=== PATIENT | female | born 1985 | race Caucasian/White ===

== ENCOUNTER → 2022-01-24 | Outpatient (CLI) | payer OTHER ==
--- NOTE | 2022-01-24 14:27 | CT ---
EXAMINATION TYPE: CT angio chest DATE OF EXAM: 01/24/2022 COMPARISON: NONE HISTORY: Chest pain and palpitations. CT DLP: 624 mGycm. Automated Exposure Control for Dose Reduction was Utilized. CONTRAST: CTA scan of the thorax is performed with IV Contrast, patient injected with 49ml mL of Isovue 370, pu lmonary embolism protocol. MIP Images are created on CT scanner and reviewed. FINDINGS: LUNGS: The lungs are grossly clear, there is no concerning greater than 5 mm parenchymal mass or nodu le identified. There is no pleural effusion or pneumothorax seen. The tracheobronchial tree is paten t. MEDIASTINUM: There is a suboptimal study with most dense contrast in the SVC. There is near equal co ntrast in the aorta without aortic aneurysm or dissection. Less than ideal opacification of the pulmo nary arteries without central pulmonary embolism. Could not entirely exclude peripheral segmental an d subsegmental emboli. There are no greater than 1 cm hilar or mediastinal lymph nodes. No cardiome donn or pericardial effusion is seen. OTHER: No additional significant abnormality is seen. IMPRESSION: Suboptimal study without central pulmonary embolism. No suspicious acute pulmonary parenc hymal process.
== END | disposition home or self-care (01) ==
LOC: RADCTMAIN 13:08
PROVIDERS: ATTEND Family Medicine
DX: R00.2 Palpitations (principal); R07.9 Chest pain, unspecified
CPT/HCPCS: 71275; Q9967

== ENCOUNTER → 2022-09-07 | Outpatient (CLI) | payer OTHER ==
[2022-09-07 23:38] LABS: C Reactive Protein 0.7 mg/dL (0.00-0.80)
== END | disposition home or self-care (01) ==
LOC: LABWHC1 15:17
PROVIDERS: ATTEND Nurse Practitioner Family
DX: R79.89 Other specified abnormal findings of blood chemistry (principal); R06.02 Shortness of breath
CPT/HCPCS: 36415; 86038; 86140; 86431

== ENCOUNTER 2022-11-02 19:54 | Emergency (ER) | payer OTHER ==
[2022-11-02 20:19] VITALS: BP 126/79; PULSE 73; RESP 16; TEMP 97.9
--- NOTE | 2022-11-02 21:00 | CT ---
EXAMINATION TYPE: CT cervical spine wo con CT DLP: 608.2 mGycm, Automated exposure control for dose reduction was used. DATE OF EXAM: 11/02/2022 8:45 PM COMPARISON: None. CLINICAL INDICATION:Female, 36 years old with history of pain, trauma, pain. TECHNIQUE: Axial CT images from the skull base to the inferior aspect of T2 we obtained without intra venous contrast. Coronal and sagittal reformatted images were also reviewed. FINDINGS: Fracture: None. Osseous structures: Multilevel degenerative disc disease changes with endplate spurring and disc oste ophyte complex's. Vertebral alignment: Alignment within normal limits. Spinal canal/Neural Foramina: Disc osteophyte complexes at C5-C6 with at least mild spinal canal sten osis. Facet joint uncovertebral joint arthropathy scattered throughout the cervical spine with varyin g degrees of neural foraminal stenosis. Neck soft tissues: Prevertebral soft tissues are within normal limits. Other: The airway is patent. The lung apices are clear. IMPRESSION: 1. No evidence of cervical spine fracture. 2. Mild multilevel disc degeneration changes.
[2022-11-02] MEDS ORDERED: KETOROLAC 15 MG/ML 1 ML VIAL IM STA (21:58)
[2022-11-02] MEDS ORDERED: ORPHENADRINE 30 MG/ML 2 ML VIAL IM STA (21:58)
[2022-11-02] MEDS ORDERED: DEXAMETHASONE SOD PHOSPHATE 10 MG/ML 1 ML VIAL IM STA (21:58)
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
== END 2022-11-02 23:01 | disposition home or self-care (01) ==
LOC: EC 19:54
DX: S16.1XXA Strain of muscle, fascia and tendon at neck level, initial encounter (principal); M54.12 Radiculopathy, cervical region; F41.9 Anxiety disorder, unspecified; Z88.2 Allergy status to sulfonamides; Z88.8 Allergy status to other drugs, medicaments and biological substances; X50.9XXA Other and unspecified overexertion or strenuous movements or postures, initial encounter
CPT/HCPCS: 72125; 99284; 96372 ×3; J1100; J2360; J1885

== ENCOUNTER → 2023-04-17 | Outpatient (CLI) | payer OTHER ==
--- NOTE | 2023-04-17 08:11 | US ---
EXAMINATION TYPE: US gallbladder DATE OF EXAM: 04/17/2023 COMPARISON: Renal ultrasound 09/29/2016 CLINICAL INDICATION: Female, 37 years old with history of R10.11 RUQ PAIN; Pain TECHNIQUE: Multiple sonographic images of the right upper quadrant are obtained. FINDINGS: EXAM MEASUREMENTS: Liver Length: 23.3 cm Gallbladder Wall: 0.2 cm CBD: 0.4 cm Right Kidney: 12.6 x 4.6 x 5.1 cm TYPESETTER PERFORATOR OPERATOR NOTES: Pancreas: wnl Liver: Enlarged, hyperechoic lesion right lobe= 1.2 x 0.7 x 0.7 cm Gallbladder: wnl Evidence for sonographic Gross's sign: No CBD: wnl Right Kidney: wnl Pancreas is within normal limits. Gallbladder is within normal limits without evidence of wall thicke gris, pericholecystic fluid, or cholelithiasis. Per appraiser timber, negative sonographic Gross sign. Co mmon bile duct is within normal limits. Right kidney is unremarkable without evidence of solid mass, hydronephrosis, or nephrolithiasis. There is a homogeneous small hyperechoic lesion within the right hepatic lobe measuring up to 1.2 cm. IMPRESSION: 1. No acute process. 2. Small hyperechoic right hepatic lobe 1.2 cm lesion. This likely represents a benign hemangioma. Th is can be further evaluated with MR abdomen (liver mass protocol) as clinically indicated.
== END | disposition home or self-care (01) ==
LOC: RADUSWWP 07:45
PROVIDERS: ATTEND Surgery Plastic and Reconstructive Surgery
DX: K76.89 Other specified diseases of liver (principal); R10.11 Right upper quadrant pain
CPT/HCPCS: 76705

== ENCOUNTER → 2023-04-17 | Outpatient (CLI) | payer OTHER | END | disposition home or self-care (01) | LOC: LABWHC1 07:48 | PROVIDERS: ATTEND Family Medicine | DX: Z01.818 Encounter for other preprocedural examination (principal); G93.2 Benign intracranial hypertension | CPT/HCPCS: 36415; 93005 ==

== ENCOUNTER → 2023-05-18 | Outpatient (CLI) | payer OTHER ==
--- NOTE | 2023-05-18 16:18 | CT ---
EXAMINATION TYPE: CT abdomen pelvis wo con CT DLP: 1741.5 mGycm, Automated exposure control for dose reduction was used. DATE OF EXAM: 05/18/2023 12:33 PM COMPARISON: None. CLINICAL INDICATION:Female, 37 years old with history of G93.2 BENIGN INTRACRANIAL HYPERTENSION; Lex gn, intracranial hypertension, abdominal pain-shunt drain right side abd TECHNIQUE: Axial CT of the abdomen and pelvis. Sagittal and coronal reformats were created on a [employer] workstation. Contrast used: mL of , (none if empty) Oral contrast used: without Oral Contrast (none if empty) FINDINGS: LOWER CHEST: Unremarkable ABDOMEN LIVER: Unremarkable GALLBLADDER AND BILE DUCTS: Unremarkable. PANCREAS: Unremarkable. SPLEEN: Unremarkable. ADRENAL GLANDS: Unremarkable. KIDNEYS AND URETERS: No evidence of hydronephrosis or renal calculus. The ureters are unremarkable. PELVIS BLADDER: Unremarkable REPRODUCTIVE: Unremarkable. ABDOMEN & PELVIS STOMACH AND BOWEL: No evidence of bowel obstruction. The appendix is normal. PERITONEUM/RETROPERITONEUM: No evidence of pneumoperitoneum or free fluid. Ventriculoperitoneal shunt tubing terminates in the upper abdomen and courses along the right anterior abdominal wall VASCULATURE: No evidence of aortic aneurysm. MUSCULOSKELETAL: No acute osseous abnormalities LYMPH NODES: No gross evidence for lymphadenopathy. SOFT TISSUE/ABDOMINAL WALL: Unremarkable IMPRESSION: Ventriculoperitoneal shunt tubing without evidence for organizing fluid collection near its tip. No e vidence for acute abdominal process.
== END | disposition home or self-care (01) ==
LOC: RADCTMAIN 12:04
PROVIDERS: ATTEND Neurological Surgery
DX: G93.2 Benign intracranial hypertension (principal); Z98.2 Presence of cerebrospinal fluid drainage device
CPT/HCPCS: 74176

== ENCOUNTER → 2023-05-18 | Outpatient (CLI) | payer OTHER ==
--- NOTE | 2023-05-18 19:42 | NM ---
EXAMINATION TYPE: NM hepatobiliary w EF DATE OF EXAM: 05/18/2023 COMPARISON: NONE CLINICAL INDICATION: Female, 37 years old with history of R10.11; TECHNIQUE: After the intravenous administration of 4.3 mCi Tc 99m Mebrofenin hepatobiliary scintigrap hy is performed. Immediate images post injection. FINDINGS: There is satisfactory initial accumulation of tracer by the liver. The gallbladder is visualized imm ediately before 1 minute. The small bowel activity is noted after prompting gallbladder contraction a t 60 minutes. At one hour 8 ounces of oral ensure plus is given to mimic CCK and gallbladder ejection fraction is calculated at 81 %, slightly elevated above the expected range (35-80%). IMPRESSION: No scintigraphic evidence for acute/chronic cholecystitis or biliary dyskinesia. Increase d gallbladder ejection fraction may be seen in the setting of gallbladder hyperkinesis.
== END | disposition home or self-care (01) ==
LOC: RADNMMAIN 12:08
PROVIDERS: ATTEND Surgery Plastic and Reconstructive Surgery
DX: R10.11 Right upper quadrant pain (principal)
CPT/HCPCS: 78226; A9537

== ENCOUNTER → 2023-08-16 | Outpatient (CLI) | payer OTHER ==
[2023-08-16 16:13] VITALS: BP 138/85; PULSE 85; TEMP 98.5; BMI 43.5
--- NOTE | 2023-08-16 16:46 | P.HPBAR ---
Bariatric H&P - History & Physicial H&P Date: 08/16/23 History & Physicial: Visit/CC: new patient Patient initial contact: Initial weight: Initial weight in pounds: Height: 5 ft 2.5 in Initial BMI: Last weight: Current weight: 109.769 kg Current weight in pounds: 242.00 Current BMI: 43.5 [place] body weight (based on NIH guidelines): 51.029 kg Excess body weight loss: The patient is a 37 year-old F who presents for Bariatric Assessment. She drink 120 oz daily. She has challenge with bowel. Need food allergy testing. CT reviewed. with fatty liver for pseudotumor cerebri. Has BMI over 40 with co- morbidities. Past Medical History Past Medical History: Asthma, Hyperlipidemia, Osteoarthritis (OA) Additional Past Medical History / Comment(s): small umbillical Hernia. Pseudotumor cerebri/increased intracranial pressure since meningitis in 2014. History of Any Multi-Drug Resistant Organisms: None Reported Past Surgical History: Section, Orthopedic Surgery Additional Past Surgical History / Comment(s): R foot bunionectomy. DOCK HAND shunt April 2023. 2 d & c Past Anesthesia/Blood Transfusion Reactions: No Reported Reaction, Motion Sickness Additional Past Anesthesia/Blood Transfusion Reaction / Comm: Pt has never received blood. Past Psychological History: Anxiety, Depression Additional Psychological History / Comment(s): Pt resides with her son. Smoking Status: Former smoker Past Alcohol Use History: Rare Additional Past Alcohol Use History / Comment(s): Pt started smoking in 2000 and quit in 2018 Past Drug Use History: Marijuana - Past Family History Mother Family Medical History: COPD, Thyroid Disorder Additional Family Medical History / Comment(s): Diverticulitis, smoker, enlarged heart ventrical Father History Unknown: Yes Surgical - Exam Vital Signs Temp Pulse BP 98.5 F 85 138/85 08/16/23 15:51 08/16/23 15:51 08/16/23 15:51 Bariatric Checklist Checklist: Plan: Checklist: EGD: 1. Hiatal hernia: 2. H. Pylori: HgbA1c: Vitamin D: Smoking: Primary care physician referral: Nicole Lopez NP Psychiatry clearance: Cardiology clearance: Sleep study: Diet journal: VTE risk score: VTE risk level: Rehab needs at discharge:
== END ==
LOC: BARWHC3 15:03
PROVIDERS: ATTEND Surgery Plastic and Reconstructive Surgery
DX: Z53.9 Procedure and treatment not carried out, unspecified reason (principal)
CPT/HCPCS: 99212

== ENCOUNTER 2023-10-09 07:39 | Day surgery (SDC) | payer OTHER ==
[2023-10-04 15:27] VITALS: BMI 43.9
[~2023-10-09 07:39] MED LIST: LACTATED RINGERS 1,000 ML IV SCH; LIDOCAINE 1% (10MG/ML) FOR IV START INTRADERMA PRN
[2023-10-09] MEDS ORDERED: MIDAZOLAM 2 MG/2 ML VIAL ONE (08:19)
[2023-10-09] MEDS ORDERED: PROPOFOL 10 MG/ML 20 ML VIAL IV ONE (08:19)
[2023-10-09] MEDS ORDERED: LIDOCAINE 1% INJ 10MG/ML (20 ML MDV) ONE (08:19)
--- NOTE | 2023-10-09 08:27 | P.GSHP ---
History of Present Illness H&P Date: 10/09/23 CHIEF COMPLAINT: GERD and change in bowel habits HISTORY OF PRESENT ILLNESS: The patient is a 37-year-old female who presents with gastroesophageal reflux disease and change in bowel habits over 6 months. Upper and lower endoscopy were offered for further evaluation and management. PAST MEDICAL HISTORY: Please see list. PAST SURGICAL HISTORY: Please see list. MEDICATIONS: Please see list. ALLERGIES: Please see list. SOCIAL HISTORY: No illicit drug use FAMILY HISTORY: No reports of Crohn disease or ulcerative colitis. REVIEW OF ORGAN SYSTEMS: CONSTITUTIONAL: No reports of fevers or chills. GI: Change in bowel habits over 6 months. PHYSICAL EXAM: VITAL SIGNS: Stable GENERAL: Well-developed pleasant in no acute distress. HEENT: No scleral icterus. Extraocular movements grossly intact. Moist buccal mucosa. NECK: Supple without lymphadenopathy. CHEST: Unlabored respirations. Equal bilateral excursions. CARDIOVASCULAR: Regular rate and rhythm. Distal 2+ pulses. ABDOMEN: Soft, nondistended. MUSCULOSKELETAL: No clubbing, cyanosis, or edema. ASSESSMENT: 1. Gastroesophageal reflux disease 2. Change in bowel habits over 6 months PLAN: 1. Recommend proceeding with an upper and lower endoscopy Past Medical History Past Medical History: Asthma, Hyperlipidemia, Osteoarthritis (OA) Additional Past Medical History / Comment(s): small umbillical Hernia. Pseudotumor cerebri/increased intracranial pressure since meningitis in 2014. History of Any Multi-Drug Resistant Organisms: None Reported Past Surgical History: Section, Orthopedic Surgery Additional Past Surgical History / Comment(s): R foot bunionectomy. 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 2 d & c, COLONOSCOPY Past Anesthesia/Blood Transfusion Reactions: No Reported Reaction, Motion Sickness Additional Past Anesthesia/Blood Transfusion Reaction / Comment(s): Pt has never received blood. Smoking Status: Former smoker - Past Family History Mother Family Medical History: COPD, Thyroid Disorder Additional Family Medical History / Comment(s): Diverticulitis, smoker, enlarged heart ventrical Father History Unknown: Yes Medications and Allergies Home Medications Medication Instructions Recorded Confirmed Type acetaZOLAMIDE [Diamox Sequels] 500 mg PO BID 04/05/23 10/04/23 History Loratadine [Claritin] 10 mg PO DAILY 08/16/23 10/04/23 History lamoTRIgine [LaMICtal] 20 mg PO DAILY 08/16/23 10/04/23 History Sertraline [Zoloft] 50 mg PO DAILY 10/04/23 10/04/23 History Allergies Allergy/AdvReac Type Severity Reaction Status Date / Time sulfamethoxazole Allergy fever, Verified 10/09/23 08:08 [From Bactrim] chills, body aches trimethoprim [From Bactrim] Allergy fever, Verified 10/09/23 08:08 chills, body aches prednisone AdvReac Rash/Hives Verified 10/09/23 08:08 Surgical - Exam Vital Signs Temp Pulse Resp BP Pulse Ox 97.6 F 83 16 140/80 99 10/09/23 08:18 10/09/23 08:18 10/09/23 08:18 10/09/23 08:18 10/09/23 08:18
[2023-10-09 08:28] VITALS: TEMP 97.6
--- NOTE | 2023-10-09 08:32 | P.PCN ---
Date of Procedure: 10/09/23 Description of Procedure: PREOPERATIVE DIAGNOSIS: Gastroesophageal reflux disease. Morbid obesity. POSTOPERATIVE DIAGNOSIS: Gastroesophageal reflux disease. Morbid obesity. Gastritis. OPERATION: Esophagogastroduodenoscopy with biopsies along the esophagus, antrum and duodenum SURGEON: Shayy Sandoval MD ANESTHESIA: MAC. INDICATIONS: The patient is a 37-year-old female who presents with reflux disease. Benefits and risks of the procedure were described. Informed consent was obtained. DESCRIPTION: The patient was brought into the endoscopy suite and laid in the left lateral decubitus position. An Olympus gastroscope was passed along the posterior oropharynx down to the distal esophagus where the squamocolumnar junction was encountered at 40 cm from the incisors. The stomach was entered and no bile reflux was found. Additional findings are listed below. Biopsies with cold forceps were obtained of the antrum. The first through third portion of the duodenum was examined. Retroflexion of the scope confirmed Hill grade 2 lower esophageal valve. The squamocolumnar junction demonstrated LA grade B erosive esophagitis. The stomach was desufflated. The patient tolerated the procedure well. FINDINGS: Squamocolumnar junction 40 cm from the incisors. Diaphragmatic hiatus at 40 cm. Hill grade 2 lower esophageal valve. LA grade B erosive esophagitis. Biopsies obtained Biopsies obtained of the duodenum. Chronic gastritis with biopsies obtained. RECOMMENDATIONS: Upper endoscopy as needed.
--- NOTE | 2023-10-09 08:47 | P.PCN ---
Date of Procedure: 10/09/23 Description of Procedure: PREOPERATIVE DIAGNOSIS: Abnormal stool function Change in bowel habits Blood in stools POSTOPERATIVE DIAGNOSIS: Ascending colon polyp Microscopic colitis OPERATION: Colonoscopy to the cecum, ileocecal valve and appendiceal orifice. Colonoscopy with random cold forceps biopsies for microscopic colitis Colonoscopy with cold forceps biopsy ascending colon polyp SURGEON: Shayy Sandoval MD. ANESTHESIA: MAC. INDICATIONS: The patient is a 37-year-old female who presents with blood in stools, altered stools including change in bowel habits. Benefits and risks were described and informed consent was obtained. DESCRIPTION OF PROCEDURE: The patient had undergone Suprep. The patient had been brought into the operating room and laid in the left lateral decubitus position. After adequate intravenous sedation, the rectum was examined with 2% lidocaine jelly. No external hemorrhoids were encountered. The rectal tone was within normal limits. No lesions were palpated in the rectal vault. An Olympus colonoscope was advanced until the cecum, ileocecal valve and appendiceal orifice were clearly viewed. The prep was good. No scattered diverticulosis was encountered. Colonic polyps were found. Cold forceps biopsies randomly were obtained for microscopic colitis. Ascending colon polyp was removed using cold forceps biopsy. Retroflexion of the scope demonstrated grade 1 internal hemorrhoids without active bleeding or inflammation. The colon was desufflated. The patient had tolerated the procedure well. Withdrawal time was over 6 minutes. FINDINGS: Aronchick preparation quality scale 1 (1-5) Internal hemorrhoids, grade 1 No external prolapsed hemorrhoids. No arteriovenous malformations. No diverticulosis Removal of 2 polyps: -Ascending colon polyp, 3 mm was removed using cold forceps biopsy. Cold forceps biopsies obtained for microscopic colitis RECOMMENDATIONS: Repeat colonoscopy 5 years, 2027 Plan - Discharge Summary Discharge Rx Participant: No New Discharge Prescriptions: Continue acetaZOLAMIDE [Diamox Sequels] 500 mg PO BID lamoTRIgine [LaMICtal] 20 mg PO DAILY Loratadine [Claritin] 10 mg PO DAILY Sertraline [Zoloft] 50 mg PO DAILY Discharge Medication List acetaZOLAMIDE [Diamox Sequels] 500 mg PO BID 04/05/23 [History] Loratadine [Claritin] 10 mg PO DAILY 08/16/23 [History] lamoTRIgine [LaMICtal] 20 mg PO DAILY 08/16/23 [History] Sertraline [Zoloft] 50 mg PO DAILY 10/04/23 [History] Follow up Appointment(s)/Referral(s): [facility] [NON-STAFF] - 11/01/23 Patient Instructions/Handouts: Gastritis (ED), Diet for Stomach Ulcers and Gastritis (GEN), Colorectal Polyps (GEN) Discharge Disposition: HOME SELF-CARE
[2023-10-09 09:19] VITALS: BP 128/79; PULSE 78; RESP 16
== END 2023-10-09 09:24 | disposition home or self-care (01) ==
LOC: ORWHC2ENDO 07:39
PROVIDERS: ATTEND Surgery Plastic and Reconstructive Surgery
DX: K29.50 Unspecified chronic gastritis without bleeding (principal); D72.820 Lymphocytosis (symptomatic); K64.0 First degree hemorrhoids; E66.01 Morbid (severe) obesity due to excess calories; E78.5 Hyperlipidemia, unspecified; J45.909 Unspecified asthma, uncomplicated; K21.9 Gastro-esophageal reflux disease without esophagitis; M19.90 Unspecified osteoarthritis, unspecified site; Z87.891 Personal history of nicotine dependence; Z88.1 Allergy status to other antibiotic agents; Z88.2 Allergy status to sulfonamides; Z88.8 Allergy status to other drugs, medicaments and biological substances; Z98.2 Presence of cerebrospinal fluid drainage device; Z79.899 Other long term (current) drug therapy
CPT/HCPCS: 81025; 88305; 88342; 45380; 43239; J2250; J2001; J2704

== ENCOUNTER → 2023-10-19 | Outpatient (CLI) | payer OTHER ==
--- NOTE | 2023-10-19 15:41 | US ---
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 FINDINGS: EXAM MEASUREMENTS: Liver Length: 14.0 cm Gallbladder Wall: 0.1 cm CBD: 0.4 cm Spleen: 11.8 cm Right Kidney: 13.5 x 6.0 x 6.5 cm Left Kidney: 12.1 x 5.2 x 2.3 cm Pancreas: wnl Liver: Echogenic area in right liver redemonstrated = 0.9 x 0.7 x 0.8 cm, likely a tiny hemangioma. Gallbladder: wnl Evidence for sonographic Gross's sign: No CBD: wnl Spleen: wnl Right Kidney: wnl Left Kidney: wnl Upper IVC: wnl Abd Aorta: wnl IMPRESSION: Tiny 9 mm echogenic lesion within the central liver redemonstrated, likely a tiny hemangioma. Given 6 months of stability, recommend a one year surveillance follow-up ultrasound to reassess. No gallstones or biliary ductal dilatation.
== END | disposition home or self-care (01) ==
LOC: RADUSWWP 09:26
PROVIDERS: ATTEND Family Medicine
DX: K76.9 Liver disease, unspecified (principal); R16.1 Splenomegaly, not elsewhere classified
CPT/HCPCS: 76700

== ENCOUNTER → 2023-12-20 | Outpatient (CLI) | payer OTHER | END | disposition home or self-care (01) | LOC: LABWHC1 16:15 | PROVIDERS: ATTEND Obstetrics & Gynecology | DX: Z33.1 Pregnant state, incidental (principal) ==

== ENCOUNTER → 2023-12-20 | Outpatient (CLI) | payer OTHER ==
--- NOTE | 2023-12-20 15:52 | P.BASOAP ---
Subjective Progress Note Date: 12/20/23 She is high risk. She is . She is 8 weeks . She is on progesterone. Went over labs. HIDA scan on gallbladder. Went over food. She has food aversions. Pathology reviewed. Assessment/Plan Plan: Date: Initial Weight: Initial BMI: Current Weight: Current BMI: Type of Surgery: Total Volume in Band: Previous Volume: Volume Removed: Volume Added: Band Size:
[2023-12-20 16:26] VITALS: BP 140/84; PULSE 98; TEMP 98.5; BMI 45.5
== END ==
LOC: BARWHC3 15:04
PROVIDERS: ATTEND Surgery Plastic and Reconstructive Surgery
DX: Z53.9 Procedure and treatment not carried out, unspecified reason (principal)
CPT/HCPCS: 99211

== ENCOUNTER → 2023-12-20 | Outpatient (CLI) | payer OTHER ==
[2023-12-20 18:07] LABS: INR 0.8 (<1.2); Partial Thromboplastin Time 25.7 sec (22.0-30.0); Prothrombin Time 9.6 sec (10.0-12.5)
[2023-12-21 02:57] LABS: HCT 37.5 % (37.2-46.3); HGB 12.2 g/dL (12.0-15.0); MCH 30.7 pg (27.0-32.0); MCHC 32.5 g/dL (32.0-37.0); MCV 94.2 FL (80.0-97.0); Mean Platelet Volume 11.3 FL (9.5-12.2); NRBC Per 100 WBC 0 X 10*3/uL (0.00-0.01); Platelet Count 233 X 10*3/uL (140-440); RBC 3.98 X 10*6/uL (4.10-5.20); RDW 12.3 % (11.5-14.5); WBC 10.57 X 10*3/uL (4.50-10.00)
[2023-12-21 03:36] LABS: Prealbumin 20.8 mg/dL (18.0-42.0)
[2023-12-21 04:27] LABS: % Iron Saturation 19.47 (12.00-45.00); ALT 14 U/L (8-44); AST 14 U/L (13-35); Albumin 4.3 g/dL (3.8-4.9); Albumin/Globulin Ratio 1.79 Ratio (1.60-3.17); Alkaline Phosphatase 93 U/L (41-126); BUN/Creat Ratio 11.88 Ratio (12.00-20.00); Blood Urea Nitrogen 9.5 mg/dL (9.0-27.0); Calcium 9.3 mg/dL (8.7-10.3); Carbon Dioxide 20.3 mmol/L (21.6-31.8); Chloride 107 mmol/L (96-109); Chol/HDL Ratio 4.28 Ratio; Ferritin 35.7 ng/mL (10.0-291.0); Globulin 2.4 g/dL (1.6-3.3); Glucose 97 mg/dL (70-110); Iron 73 UG/DL (50-170); LDL Cholesterol,Calculated 127.8 mg/dL (0.0-131.0); Phosphorus 4.2 mg/dL (2.4-5.1); Sodium 139 mmol/L (135-145); Total Bilirubin <0.2 mg/dL (0.3-1.2); Total Iron Binding Capacity 375 UG/DL (228-460); Total Protein 6.7 g/dL (6.2-8.2)
[2023-12-21 12:28] LABS: Zinc, Serum 48 ug/dL (60-130)
[2023-12-22 07:22] LABS: Vit B1(Thiamine) 72 ug/L (38-122)
[2023-12-22 07:56] LABS: Vitamin A 62 ug/dL (38-106)
== END | disposition home or self-care (01) ==
LOC: LABWHC1 16:11
PROVIDERS: ATTEND Surgery Plastic and Reconstructive Surgery
DX: E66.01 Morbid (severe) obesity due to excess calories (principal); E89.1 Postprocedural hypoinsulinemia; D50.8 Other iron deficiency anemias; K91.2 Postsurgical malabsorption, not elsewhere classified; E44.0 Moderate protein-calorie malnutrition; E44.1 Mild protein-calorie malnutrition; E45 Retarded development following protein-calorie malnutrition; E46 Unspecified protein-calorie malnutrition; E55.9 Vitamin D deficiency, unspecified; K74.1 Hepatic sclerosis; N19 Unspecified kidney failure; T56.894A Toxic effect of other metals, undetermined, initial encounter; K50.90 Crohn's disease, unspecified, without complications
CPT/HCPCS: 36415; 80053; 80061; 82306; 82525; 82607; 82728; 82746; 83036; 83540; 83550; 83735; 83970; 84100; 84134; 84144; 84255; 84425; 84443; 84590; 84630; 84702; 85027; 85610; 85730

== ENCOUNTER → 2024-01-04 | Outpatient (CLI) | payer OTHER ==
[2024-01-04 18:43] LABS: Appearance,Urine Turbid (Clear); Bilirubin,Urine Negative (Negative); Blood,Urine Negative (Negative); Color,Urine Yellow (Yellow); Ketones,Urine Negative (Negative); Nitrite,Urine Negative (Negative); PH, Urine 7.5; Specific Gravity,Urine 1.015 (1.001-1.030)
[2024-01-04 19:07] LABS: Amorphous Sediment,Urine Present (None Seen); Bacteria,Urine None Seen (None Seen)
[2024-01-04 20:48] LABS: Urine Alcohol Negative (Negative); Urine Barbiturate Negative (Negative); Urine Cocaine Negative (Negative); Urine Methadone Negative (Negative); Urine Opiates Negative (Negative); Urine Phencyclidine Negative (Negative)
== END | disposition home or self-care (01) ==
LOC: LABWHC1 09:59
PROVIDERS: ATTEND Obstetrics & Gynecology
DX: Z36.89 Encounter for other specified antenatal screening (principal)
CPT/HCPCS: 80306; 81001; 87086

== ENCOUNTER → 2024-01-11 | Outpatient (CLI) | payer OTHER ==
--- NOTE | 2024-01-12 22:55 | CA ---
Transthoracic Echo Report Name: Harleen Winchester Age: 38 Gender: F : 1985 Exam Date: 01/11/2024 14:11 Exam Location: [facility] Ht (in): 63 Wt (lb): 251 Ordering Physician: Felisa Kirkpatrick MD ([id number]) Attending/Referring Phys: Simin Engel [facility] [employer] Lashell Merchant RDCS Procedure CPT: Indications: R06.02 SOB R07.9 CHEST PAIN Cardiac Hx: Technical Quality: Fair Contrast 1: Total Dose (mL): Contrast 2: Total Dose (mL): MEASUREMENTS (Male / Female) Normal Values 2D ECHO LV Diastolic Diameter PLAX 3.7 cm 4.2 - 5.9 / 3.9 - 5.3 cm LV Systolic Diameter PLAX 2.0 cm IVS Diastolic Thickness 1.1 cm 0.6 - 1.0 / 0.6 - 0.9 cm LVPW Diastolic Thickness 1.2 cm 0.6 - 1.0 / 0.6 - 0.9 cm LV Relative Wall Thickness 0.6 RV Internal Dim ED PLAX 3.6 cm LA Volume 29.9 cm??? 18 - 58 / 22 - 52 cm??? LA Volume Index 12.9 cm???/m??? 16 - 28 cm???/m??? M-MODE Aortic Root Diameter MM 2.0 cm LA Systolic Diameter MM 3.8 cm LA Ao Ratio MM 1.9 AV Cusp Separation MM 1.4 cm DOPPLER AV Peak Velocity 160.1 cm/s AV Peak Gradient 10.3 mmHg AV Mean Velocity 120.2 cm/s AV Mean Gradient 6.3 mmHg AV Velocity Time Integral 33.8 cm LVOT Peak Velocity 141.3 cm/s LVOT Peak Gradient 8.0 mmHg LVOT Velocity Time Integral 29.6 cm MV Area PHT 4.6 cm??? Mitral E Point Velocity 113.3 cm/s Mitral A Point Velocity 72.0 cm/s Mitral E to A Ratio 1.6 MV Deceleration Time 164.2 ms MV E' Velocity 9.7 cm/s Mitral E to MV E' Ratio 11.7 TR Peak Velocity 219.1 cm/s TR Peak Gradient 19.2 mmHg Right Ventricular Systolic Press 23.6 mmHg FINDINGS Left Ventricle Mildly increased left ventricular wall thickness. Left ventricular cavity size normal. Normal left ventricular systolic function. No obvious regional wall motion abnormalities. Left ventricular ejection fraction is estimated at 55-60 %. Normal left ventricular diastolic filling pattern. Right Ventricle Mild right ventricular dilatation. Right ventricular systolic pressure within normal limits. Right Atrium Normal right atrial size. Left Atrium Normal left atrial size. Mitral Valve Structurally normal mitral valve. No mitral stenosis, regurgitation or prolapse. Aortic Valve Trileaflet aortic valve. No aortic valve stenosis or regurgitation. Tricuspid Valve Structurally normal tricuspid valve. Mild tricuspid regurgitation. Pulmonic Valve Structurally normal pulmonic valve. Pericardium No pericardial effusion. Aorta Normal size aortic root and proximal ascending aorta. CONCLUSIONS Left ventricular ejection fraction is estimated at 55-60 %. No obvious regional wall motion abnormalities. Mild right ventricular dilatation. Normal function. RVSP 25 mmHg No significant valve dysfunction Previewed by: Dr Stanislaw Ferrera (Electronically Signed) Final Date: 12 January 2024 22:54
== END | disposition home or self-care (01) ==
LOC: RADECHMAIN 14:07
PROVIDERS: ATTEND Internal Medicine Interventional Cardiology
DX: I51.7 Cardiomegaly (principal); R06.02 Shortness of breath; R07.9 Chest pain, unspecified
CPT/HCPCS: 93306

== ENCOUNTER → 2024-05-06 | Outpatient (CLI) | payer OTHER ==
[2024-05-06 14:11] LABS: Glucose 3 Hour, Gest 83 mg/dL
== END | disposition home or self-care (01) ==
LOC: LABWHC1 08:07
PROVIDERS: ATTEND Obstetrics & Gynecology
DX: O24.419 Gestational diabetes mellitus in pregnancy, unspecified control (principal); Z3A.00 Weeks of gestation of pregnancy not specified
CPT/HCPCS: 36415; 82951; 82952

== ENCOUNTER → 2024-05-16 | Outpatient (CLI) | payer OTHER ==
[2024-05-16 15:02] LABS: Glucose 3 Hour, Gest 77 mg/dL
== END | disposition home or self-care (01) ==
LOC: LABWHC1 08:07
PROVIDERS: ATTEND Obstetrics & Gynecology
DX: O24.419 Gestational diabetes mellitus in pregnancy, unspecified control (principal); Z3A.00 Weeks of gestation of pregnancy not specified
CPT/HCPCS: 36415; 82951; 82952